=== PATIENT | male | born 1935 | race Caucasian/White ===

== ENCOUNTER 2016-10-25 14:37 | Emergency (ER) | payer MEDICARE, OTHER ==
[2016-10-25 15:23] LABS: BASOPHILS 0.1 % (0.0-2.0); EOSINOPHILS 0.8 % (0-7); HEMATOCRIT 32.7 % (42.0-54.0); HEMOGLOBIN 11.1 g/dL (13.5-17.5); IMMATURE GRANULOCYTES 0.1 % (0-5); LYMPHOCYTES 15.5 % (15-50); MCH 32.2 pg (26.0-34.0); MCHC 33.9 g/dL (31.0-37.0); MCV 94.8 fL (80.0-100.0); MEAN PLATELET VOLUME 9.6 fL (7.4-10.4); MONOCYTES 6.2 % (2-11); NEUTROPHILS 77.3 % (40-80); PLATELET COUNT 106 10x3/uL (130-400); RBC 3.45 10x6/uL (4.20-6.10); RDW 12.8 % (11.5-14.5); WBC 7.6 10x3/uL (4.8-10.8)
[2016-10-25 15:39] LABS: ALBUMIN 3.7 g/dL (3.4-5.0); ALKALINE PHOSPHATASE 56 U/L (46-116); ALT (SGPT) 23 U/L (10-68); BILIRUBIN - TOTAL 0.65 mg/dL (0.2-1.3); CALC OSMOLALITY 283 mosm/kg (275-300); CALCIUM 8.4 mg/dL (8.5-10.1); CARBON DIOXIDE 24.4 mmol/L (21.0-32.0); CHLORIDE - SERUM 106 mmol/L (98-107); CREATININE - SERUM 1.3 mg/dL (0.6-1.3); GLUCOSE 111 mg/dL (74-106); POTASSIUM - SERUM 4.3 mmol/L (3.5-5.1); PROTEIN - SERUM 7.1 g/dL (6.4-8.2); SODIUM 140 mmol/L (136-145); UREA NITROGEN 23 mg/dL (7-18); eGFR NON AFRICAN AMERICAN 56 mL/min (90-120)
[2016-10-25 15:44] LABS: TROPONIN-I < 0.017 ng/mL (0.000-0.060)
== END 2016-10-25 20:30 | disposition home or self-care (01) ==
LOC: D.ER 14:37
PROVIDERS: Emergency Medicine
DX: H81.20 Vestibular neuronitis, unspecified ear (principal); R51 Headache; R11.0 Nausea; Z95.0 Presence of cardiac pacemaker; I10 Essential (primary) hypertension; H40.9 Unspecified glaucoma; I45.10 Unspecified right bundle-branch block

== ENCOUNTER 2019-11-28 15:46 | Inpatient (IN) | payer MEDICARE, OTHER ==
[~2019-11-28] VITALS: Ht 177.8 cm; Wt 82.5 kg
[2019-11-28 17:11] VITALS: BP 145/64
--- NOTE | 2019-11-28 17:11 | NUR ---
NASAL SWABS X 2 AND THROAT SWAB COLLECTED, LABELED AT BS AND SENT TO LAB
[2019-11-28 17:34] LABS: BASOPHILS 0.2 % (0-2); EOSINOPHILS 1.4 % (0-7); HEMATOCRIT 29.3 % (42.0-54.0); HEMOGLOBIN 9.2 g/dL (13.5-17.5); IMMATURE GRANULOCYTES 0.2 % (0-5); LYMPHOCYTES 21.2 % (15-50); MCH 30.7 pg (26.0-34.0); MCHC 31.4 g/dL (31.0-37.0); MCV 97.7 fL (80.0-100.0); MEAN PLATELET VOLUME 9.7 fL (7.4-10.4); MONOCYTES 10.8 % (2-11); NEUTROPHILS 66.2 % (40-80); PLATELET COUNT 112 10x3/uL (130-400); RDW 13.1 % (11.5-14.5); WBC 5.9 10x3/uL (4.8-10.8)
[2019-11-28 17:55] LABS: CALC OSMOLALITY 283 mosm/kg (275-300); CALCIUM 8.6 mg/dL (8.5-10.1); CARBON DIOXIDE 27.1 mmol/L (21.0-32.0); CHLORIDE - SERUM 107 mmol/L (98-107); CREATININE - SERUM 1.5 mg/dL (0.6-1.3); GLUCOSE 104 mg/dL (74-106); SODIUM 141 mmol/L (136-145); UREA NITROGEN 22 mg/dL (7-18); eGFR NON AFRICAN AMERICAN 47 mL/min (90-120)
[2019-11-28 18:07] LABS: APTT 23.2 SECONDS (22.8-39.4)
[2019-11-28 18:09] LABS: ALBUMIN 3.2 g/dL (3.4-5.0); ALKALINE PHOSPHATASE 55 U/L (30-120); ALT (SGPT) 17 U/L (10-68); BILIRUBIN - TOTAL 0.67 mg/dL (0.2-1.3); CKMB 2.7 U/L (0.0-3.6); CREATINE KINASE 224 UL (21-232); PROTEIN - SERUM 6.4 g/dL (6.4-8.2)
[2019-11-28 18:10] LABS: TROPONIN-I 0.101 ng/mL (0.000-0.060)
[2019-11-28 18:35] LABS: INR 1.1 (0.85-1.17); PROTIME 14.2 SECONDS (11.6-15.0)
[2019-11-28 18:49] VITALS: BP 148/63
[2019-11-28 19:12] LABS: BILIRUBIN NEGATIVE (NEGATIVE); GLUCOSE NEGATIVE (NEGATIVE); KETONE NEGATIVE (NEGATIVE); NITRITE NEGATIVE (NEGATIVE); UROBILINOGEN NORMAL (NORMAL)
[2019-11-28 19:23] VITALS: BP 147/65
[2019-11-28] MEDS ORDERED: BLOOD PRESSURE (22:43)
[2019-11-28] MEDS ORDERED: BAYER CHEWABLE81 MG PO (22:43)
[2019-11-28] MEDS ORDERED: STATIN (22:43)
[2019-11-28] MEDS ORDERED: GOUT MEDICATION (22:44)
[2019-11-29] VITALS (7 sets, daily range): BP systolic 107–156; BP diastolic 45–60; Ht 177.8 cm; Wt 82.5 kg
--- NOTE | 2019-11-29 03:46 | NUR ---
I have reviewed this patient and I concur with the Shift Assessment completed by the Licensed Practical Nurse today this shift.
[2019-11-29 05:54] LABS: BASOPHILS 0.2 % (0-2); EOSINOPHILS 1.7 % (0-7); HEMATOCRIT 27.5 % (42.0-54.0); HEMOGLOBIN 8.7 g/dL (13.5-17.5); IMMATURE GRANULOCYTES 0.2 % (0-5); LYMPHOCYTES 21.6 % (15-50); MCH 30.9 pg (26.0-34.0); MCHC 31.6 g/dL (31.0-37.0); MCV 97.5 fL (80.0-100.0); MEAN PLATELET VOLUME 9.4 fL (7.4-10.4); MONOCYTES 10.9 % (2-11); NEUTROPHILS 65.4 % (40-80); PLATELET COUNT 93 10x3/uL (130-400); RBC 2.82 10x6/uL (4.20-6.10); RDW 13.1 % (11.5-14.5)
[2019-11-29 06:19] LABS: WBC 4.1 10x3/uL (4.8-10.8)
[2019-11-29 06:29] LABS: ALBUMIN 2.9 g/dL (3.4-5.0); ALKALINE PHOSPHATASE 43 U/L (30-120); ALT (SGPT) 17 U/L (10-68); BILIRUBIN - TOTAL 0.63 mg/dL (0.2-1.3); CALC OSMOLALITY 285 mosm/kg (275-300); CALCIUM 8.1 mg/dL (8.5-10.1); CARBON DIOXIDE 24.1 mmol/L (21.0-32.0); CHLORIDE - SERUM 110 mmol/L (98-107); CKMB 2.3 U/L (0.0-3.6); CREATINE KINASE 160 UL (21-232); CREATININE - SERUM 1.3 mg/dL (0.6-1.3); GLUCOSE 105 mg/dL (74-106); PHOSPHOROUS 4.3 mg/dL (2.5-4.9); POTASSIUM - SERUM 3.6 mmol/L (3.5-5.1); PRO BNP 6367 pg/mL (0-450); SODIUM 142 mmol/L (136-145); UREA NITROGEN 20 mg/dL (7-18); eGFR NON AFRICAN AMERICAN 56 mL/min (90-120)
[2019-11-29 06:30] LABS: TROPONIN-I 0.067 ng/mL (0.000-0.060)
--- NOTE | 2019-11-29 07:38 | NUR ---
ASSESSMENT DONE. DENIES NEEDS
--- NOTE | 2019-11-29 09:22 | NUR ---
I have reviewed this patient and I concur with the Shift Assessment completed by the Licensed Practical Nurse today this shift.
[2019-11-29 10:39] LABS: HEMATOCRIT 28.3 % (42.0-54.0); HEMOGLOBIN 8.9 g/dL (13.5-17.5)
[2019-11-29 10:56] LABS: PLATELET ESTIMATE DECREASED
[2019-11-29 10:57] LABS: ROULEAUX OCC
[2019-11-29 16:14] LABS: HEMATOCRIT 27.7 % (42.0-54.0); HEMOGLOBIN 8.7 g/dL (13.5-17.5)
--- NOTE | 2019-11-29 18:25 | NUR ---
WITHOUT CHANGES OR DISTRESS NOTED AT THIS TIME. DENIES NEEDS
[2019-11-29 22:26] LABS: HEMATOCRIT 26.9 % (42.0-54.0); HEMOGLOBIN 8.4 g/dL (13.5-17.5)
[2019-11-30] VITALS: BP 104/64
[2019-11-30 04:00] VITALS: BP 154/66
--- NOTE | 2019-11-30 06:38 | NUR ---
PREOP MEDS GIVEN, TRANSPORTER AT BED SIDE WITH CHART TO TAKE PT TO OR.
[2019-11-30 07:05] LABS: BASOPHILS 0.2 % (0-2); EOSINOPHILS 2.3 % (0-7); HEMOGLOBIN 8.9 g/dL (13.5-17.5); IMMATURE GRANULOCYTES 0.2 % (0-5); LYMPHOCYTES 22.8 % (15-50); MCH 30.9 pg (26.0-34.0); MCHC 31.8 g/dL (31.0-37.0); MCV 97.2 fL (80.0-100.0); MEAN PLATELET VOLUME 9.6 fL (7.4-10.4); MONOCYTES 9.5 % (2-11); RBC 2.88 10x6/uL (4.20-6.10); RDW 13.1 % (11.5-14.5)
[2019-11-30 07:17] LABS: % SATURATION 19 % (15-55); IRON 39 ug/dl (35-150); TOTAL IRON BIND CAPACITY 199 ug/dl (260-445); UNSAT IRON BIND CAPACITY 160 ug/dl (150-375)
[2019-11-30 07:29] LABS: PLATELET COUNT 120 10x3/uL (130-400); WBC 5.2 10x3/uL (4.8-10.8)
[2019-11-30 07:31] LABS: ANION GAP 11.9 mmol/L (8-16); CALCIUM 8.1 mg/dL (8.5-10.1); CARBON DIOXIDE 22.7 mmol/L (21.0-32.0); CREATININE - SERUM 1.2 mg/dL (0.6-1.3); PHOSPHOROUS 3.9 mg/dL (2.5-4.9); POTASSIUM - SERUM 3.6 mmol/L (3.5-5.1)
--- NOTE | 2019-11-30 07:34 | NUR ---
RETURN FROM GI LAB, ASSESSMENT DONE. DENIES NEEDS
--- NOTE | 2019-11-30 09:23 | NUR ---
I have reviewed this patient and I concur with the Shift Assessment completed by the Licensed Practical Nurse today this shift.
[2019-11-30 09:25] VITALS: BP 149/69
--- NOTE | 2019-11-30 10:33 | EC ---
PATIENT:SELAM ZAMUDIO DATE OF SERVICE: 11/29/19 SEX: M MEDICAL RECORD: [id number] DATE OF : 33 LOCATION:D.M2 D.212 AGE OF PATIENT: 84 ADMISSION DATE: 11/29/19 REFERRING PHYSICIAN: INTERPRETING PHYSICIAN: RACHELL CASTELLANOS MD ECHOCARDIOGRAM REPORT ECHO CHARGES 4 ECHO COMPLETE Date: 11/29/19 CLINICAL DIAGNOSIS: DELGADO H/O TAVR ECHOCARDIOGRAPHIC MEASUREMENTS (adult normal given) AC root (d.<3.7cm) 3.0 cm LV Septum d (<1.2 cm> 1.2 cm Valve Excursion 0.9 cm LV Septum (systole) 2.0 cm Left Atria (s.<4.0cm> 5.4 cm LVPW d(<1.2cm) 1.4 cm RV (d.<2.3cm) 2.3 cm LVPW (sytole) 1.8 cm LV diastole(<5.6CM) 7.2 cm MV E-F(>70mm/sec) cm LV systole 5.1 cm LVOT Diameter cm MV exc.(>10mm) cm Est.ejection fraction (50-75%) % DOPPLER: LVIT cm/sec A 153 cm/sec E 134 cm/sec LA cm/sec RVSP 20.1 mmHg LVOT 139 cm/sec AOP1/2T m/s Asc. Ao 229 cm/sec RVOT 86.0 cm/sec RA cm/sec PA 121 cm/sec AV Gradient Peak 21.0 mmHg AV Mean 9.9 mmHg AV Area 1.4 cm MV Gradient Peak 11.0 mmHg MV Mean 4.2 mmHg MV Area cm COMMENTS: Box Car Washer: 1 FELIX TOTHOE Pen Rider: 3 Dr. Ramírez TAPE# PACS Pericardial Effusion N DATE OF SERVICE: Adequate 2D, color flow imaging, spectral Doppler, and M-Mode LVH is present. LV internal dimensions are normal. Wall motion is normal. EF is greater than or equal of 55%. Prosthetic aortic valve is noted with acceptable Doppler velocity, peak gradient of 21 mmHg. No significant AI. Left atrium is dilated at 5.4 cm. Mitral valve is thickened. Moderate MR. Right-sided chambers are grossly normal. Trace TR. ECHOCARDIOGRAM REPORT [id number] SELAM ZAMUDIO TRANSINT:[id number] Voice Confirmation ID: [id number] DOCUMENT ID: [id number] RACHELL CASTELLANOS MD at 1033 CC: [id number] DICTATION DATE: 11/30/19814 HYDRAULIC BLOCKER: 11/30/[address] [facility] [address] [id number]
--- NOTE | 2019-11-30 14:25 | NUR ---
DC GIVEN TO PT
--- NOTE | 2019-11-30 15:06 | NUR ---
DC HOME PER PERSONAL CAR
--- NOTE | 2019-11-30 16:07 | MORECARE ---
CASE MANAGEMENT DISCHARGE SUMMARY PATIENT: SELAM ZAMUDIO UNIT: [id number] ADM DATE: 11/29/19 AGE: 84 : [birth year] SEX: M ROOM/BED: D.5363 AUTHOR: BRUNO BUI PHYSICIAN: REFERRING PHYSICIAN: MARGARITA PICKETT MD DATE OF SERVICE: 11/30/19 Discharge Plan Patient Name: SELAM ZAMUDIO Facility: [facility]:[place] : 1935 Planned Disposition: Home Anticipated Discharge Date: Discharge Date: 11/30/2019 Expected LOS: Initial Reviewer: [email or web address] Initial Review Date: 11/28/2019 Generated: 11/30/19 5:06 pm Comments DCP- Discharge Planning Updated by [email or web address]: Alyson López on 11/30/19 3:[address] Patient Name: SELAM ZAMUDIO Admission Status: ER Accout number: [id number] Admission Date: 11-29-2019 : 1935 Admission Diagnosis:GASTROINTESTINAL HEMORRHAGE, UNSPECIFIED Attending: MARGARITA PICKETT Current LOS: 1 Anticipated DC Date: Planned Disposition: Home Primary Insurance: MEDICARE A & B Discharge Planning Comments: ANTICIPATED DC NEEDS: denied known dc needs at time of assessment. CM met with patient to complete initial dc planning assessment. CM educated patient on the CM role and verbal consent given by patient to complete assessment. CM verified patient's address, phone number, and emergency contact phone numbers. Patient lives at home with his . At discharge patient plans to return home and feels this is a safe discharge. CM discussed availability of home health, rehab services, and medical equipment. Patient declined the need for any services. Declination for services was signed. Patient denied known discharge needs at this time. Transportation provider at discharge will be his daughter . CM will continue to follow and will assist as needed with dc plans/needs. Manager Compliance: Alyson López Coverage Notice Reviewer: [email or web address] - Alyson López Notice Issued Date-Time: 11/30/2019 13:00 Notice Type: Patient Choice Letter Notice Delivered To: Patient Relationship to Patient: [employer] Officer Name: Delivery Method: HAND - Hand Delivered Makenzie Days: Prior Verbal Notification: Recipient Understood Notice: Yes Recipient Signature: Yes Med Rec Note Co-signed by Attending: Coverage Notice Comment: declination signed Patient Name: SELAM ZAMUDIO Page [id number] at 1607 All edits/amendments must be made on the electronic document DICTATION DATE: 11/30/191605 REGULATORY SUBMISSIONS SPECIALIST: RAAD 11/30/191605 RPT#: [id number] DC DATE:11/30/19 STATUS: DIS IN [facility] [address] [place] [address] END OF REPORT
== END 2019-11-30 15:06 | disposition home or self-care (01) | DRG 378 ==
LOC: D.ER 15:46 → D.M2 19:31 → OBSVTIME 19:31 → D.M2 19:31
PROVIDERS: Family Medicine; Internal Medicine Gastroenterology; ADMIT Internal Medicine Nephrology; ATTEND Internal Medicine Nephrology
PROC: 0DB68ZX Excision of Stomach, Via Natural or Artificial Opening Endoscopic, Diagnostic (ICD-10-PCS; 2019-11-30)
PROC: 0DB58ZX Excision of Esophagus, Via Natural or Artificial Opening Endoscopic, Diagnostic (ICD-10-PCS; principal; 2019-11-30 07:00)
DX: K57.11 Diverticulosis of small intestine without perforation or abscess with bleeding (principal); D62 Acute posthemorrhagic anemia; N17.9 Acute kidney failure, unspecified; I24.8 Other forms of acute ischemic heart disease; I25.10 Atherosclerotic heart disease of native coronary artery without angina pectoris; K22.70 Barrett's esophagus without dysplasia; K44.9 Diaphragmatic hernia without obstruction or gangrene